=== PATIENT | female | born 1960 | race Caucasian/White ===

== ENCOUNTER 2020-03-16 15:05 | Outpatient (CLI) | payer BC ==
--- NOTE | 2020-03-16 18:26 | MRI ---
MRI CERVICAL SPINE WITHOUT CONTRAST: Indications: Neck pain. FINDINGS: Cervical vertebrae maintain height and alignment. There are moderate degenerative changes of the lowe r cervical spine. Loss of disc space at C5-6 and C6-7. Anterior osteophytes at C4, C5, C6 and C7. No significant disc bulge or spondylosis at C2-3 or C3-4. There is facet hypertrophy and mild right f oraminal narrowing at C3-4. C4-5: Mild posterior disc bulge and spondylosis flatten the thecal sac and mildly efface the anterior subarachnoid space. No cord compression or central canal stenosis. Mild right foraminal narrowing du e to uncinate hypertrophy. C5-6: Posterior disc bulge and spondylosis abut the anterior cord. Bilateral foraminal stenosis, more severe on the left due to hypertrophic change. C6-7: Posterior disc and spondylosis mildly compress the anterior cord. Mild bilateral foraminal narr owing due to facet and uncinate hypertrophy. Cord signal appears normally preserved. IMPRESSION: There are degenerative disc changes at C5-6 and C6-7. Posterior disc bulge and spondylosis at both of these levels, more severe at C6-7 as described above. POS: [facility]
== END 2020-03-16 15:06 | disposition home or self-care (01) ==
LOC: BICMRI 15:05
PROVIDERS: ATTEND Family Medicine
DX: M50.122 Cervical disc disorder at C5-C6 level with radiculopathy (principal); M47.22 Other spondylosis with radiculopathy, cervical region
CPT/HCPCS: 72141

== ENCOUNTER 2023-05-30 14:55 | Outpatient (CLI) | payer OTHER | END 2023-05-30 14:56 | disposition home or self-care (01) | LOC: BICCT 14:55 | PROVIDERS: ATTEND Family Medicine | DX: E78.5 Hyperlipidemia, unspecified (principal); I08.8 Other rheumatic multiple valve diseases | CPT/HCPCS: 75571 ==

== ENCOUNTER 2024-03-06 10:28 | Outpatient (CLI) | payer BC | END 2024-03-06 10:29 | disposition home or self-care (01) | LOC: SCSMRI 10:28 | PROVIDERS: ATTEND Family Medicine | DX: M75.122 Complete rotator cuff tear or rupture of left shoulder, not specified as traumatic (principal); S43.432A Superior glenoid labrum lesion of left shoulder, initial encounter ==